=== PATIENT | female | born 1960 | race Caucasian/White ===

== ENCOUNTER 2017-12-30 07:00 | Day surgery (SDC) | payer BC, OTHER ==
[2017-12-29 16:19] LABS: HEMATOCRIT 41.9 % (36.0-48.0); HEMOGLOBIN 15.2 g/dL (12-16); MCHC 36.3 g/dL (31.0-37.0); MCV 88.2 fL (80.0-100.0); RBC 4.75 10x6/uL (4.00-5.40); RDW 12.5 % (11.5-14.5)
[~2017-12-30] VITALS: Ht 157.5 cm; Wt 108.0 kg
--- NOTE | ~2017-12-30 | OP ---
PATIENT NAME: RASHID MAYEN MEDICAL RECORD: [id number] :60 LOCATION:[facility] ADMISSION DATE: SURGEON: PHILLIP MATTA DO DATE OF OPERATION: 12/30/2017 PROCEDURE PERFORMED: Left knee arthroscopy with plica resection, partial medial meniscectomy, partial lateral meniscectomy and abrasion chondroplasty to medial femoral condyle. PREOPERATIVE DIAGNOSES: Left knee pain with medial meniscal tear. 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 Also, plica band syndrome. INDICATIONS: Ms. Mayen is a 57-year-old female who has had left knee pain for the last two weeks, she said it has gotten worse over the last few weeks and had not been able to walk, due to the popping, catching and locking. She had an MRI, which showed initially read as not having a meniscal tear, but there was some edema in her medial meniscus noted. I told her due to her symptoms she had a positive Aarti's and bounce home test as well as medial joint line tenderness. We would look at it and due to the severity of her symptoms she could not bear weight much. She was okay with that and was aware of the risks and benefits of the procedure including infection, bleeding, damage to nerves and vessels, need for further surgery and consented to the procedure. SURGEON: Phillip Matta DO DESCRIPTION OF PROCEDURE: The patient was taken to the operative suite, laid in supine position, given general anesthetic and 3 grams Ancef preoperatively. The left lower extremity was prepped and draped in sterile fashion. Timeout was performed, everyone was in agreement with the correct side, site, patient and procedure. Procedure then began with the knee flexed and a lateral portal was established with 11-blade scalpel. The scope was then entered into the knee. The water was turned on and there was quite a bit of inflammation and even blood in the knee joint itself. A large plica band was noticed over the medial femoral condyle, rubbing, had completely removed the cartilage of the trochlea and more than 50% of that on the medial facet of the patella as well as the anterior portion of the medial femoral condyle. Noting this, we continued with the knee scope, inspecting the lateral gutter, again had some blood in the medial gutter as well and then the knee was brought from extension to flexion and the medial joint was entered. The medial portal was then established with first an 18-guage spinal needle then 11-blade scalpel. A probe was put into the knee. A large piece of cartilage was noted in the medial joint as well as a grade IV chondromalacia right along the central portion of the medial femoral condyle. Cartilage was full thickness, torn and falling off. The meniscus was probed and there was a tear on the posterior horn of it, close to the root. This was trimmed out with a biter and shaver. Then, the abrasion chondroplasty was performed. All the loose cartilage was taken off the medial femoral condyle with a shaver back to a stable position. The ACL was then inspected and seen to be taut. The knee was then [id number]-fl-fwcn'ed and the lateral compartment was inspected. There was fraying and tear seen of the more inner portion of the lateral meniscus on the anterior third. This was trimmed back with the shaver. That portion of the meniscectomy was done then. The knee was then brought into extension. The shaver was brought into the superior pouch and the plica was OPERATIVE REPORT [id number] RASHID MAYEN resected with a shaver. As the plica was resected, more of the removed cartilage was seen and it was quite extensive over the trochlea and the anterior portion of the medial femoral condyle. Then a burner was brought in and all bleeding was coagulated and the water was turned off. Suction was turned on and the excess fluid was removed out of the knee. All the loose bodies were removed prior to this as well from the cartilage pieces. The patient was then injected with 0.25% Marcaine with epinephrine at the sites of the portal sites and the portal sites were closed with 4-0 Monocryl in inverted interrupted fashion. Steri-Strips, Adaptic, 4 x 4's, ABD, Webril and Horacio wrap were then placed on these. AIDEE hose stocking was placed up to the knee. The patient was awakened and taken to recovery in stable condition. COMPLICATIONS: None. BLOOD LOSS: Minimal. TRANSINT:[id number] Voice Confirmation ID: [id number] DOCUMENT ID: [id number] PHILLIP MATTA DO at 1516 CC: [id number] DICTATION DATE: 12/30/17 1108 COMMISSARY MANAGER: 12/30/17 1145 [facility] [place] 12/30/17 [place] [id number] [place] [address]
[~2017-12-30 07:00] MED LIST: CYCLOBENZAPRINE10 MG PO; PRAVACHOL20 MG PO; ZOLOFT50 MG PO
[2017-12-30 07:39] VITALS: BP 184/105; Ht 157.5 cm; Wt 108.0 kg
[2017-12-30] MEDS ORDERED: MOBIC7.5 MG PO (11:01)
[2017-12-30] MEDS ORDERED: PERCOCET 5-3251 TAB PO (11:01)
== END 2017-12-30 12:45 | disposition home or self-care (01) ==
LOC: D.OPS 07:00 → D.PAN 08:50 → D.OPS 09:00 → D.PAN 09:00 → D.OPS 12:45 → D.PAN 13:00 → D.OPS 13:00
PROVIDERS: Anesthesiology
DX: S83.242A Other tear of medial meniscus, current injury, left knee, initial encounter (principal); S83.282A Other tear of lateral meniscus, current injury, left knee, initial encounter; M22.42 Chondromalacia patellae, left knee; M67.52 Plica syndrome, left knee; Z01.812 Encounter for preprocedural laboratory examination

== ENCOUNTER 2020-01-25 05:15 | Day surgery (SDC) | payer MEDICARE ==
[~2020-01-25] VITALS: Ht 157.5 cm; Wt 108.9 kg
[~2020-01-25 05:15] MED LIST changes: +LISINOPRIL10 MG PO; +MOBIC7.5 MG PO; +PERCOCET 5-3251 TAB PO; +PRAVASTATIN SOD10 MG; +TRAZODONE HCL100 MG PO
[2020-01-25 05:44] LABS: HEMATOCRIT 41.8 % (36.0-48.0); MCH 30.6 pg (26.0-34.0); MCHC 33.5 g/dL (31.0-37.0); MCV 91.3 fL (80.0-100.0); MEAN PLATELET VOLUME 9.9 fL (7.4-10.4); RBC 4.58 10x6/uL (4.00-5.40); WBC 6.1 10x3/uL (4.8-10.8)
[2020-01-25 06:25] VITALS: BP 140/88; Ht 157.5 cm; Wt 108.9 kg
--- NOTE | 2020-01-25 11:51 | NUR ---
0945 IV D/C'D WITH CANNULA INTACT, PRESSURE HELD AND DRSG PLACED. DISCHARGE INSTRUCTIONS GIVEN TO PT AND SHE VERBALIZED AN UNDERSTANDING. DISCHARGED HOME IN STABLE CONDITION AND WITHOUT C/O
--- NOTE | 2020-01-25 11:58 | OP ---
PATIENT NAME: RASHID MAYEN MEDICAL RECORD: [id number] :60 LOCATION:[facility] ADMISSION DATE: SURGEON: PHILLIP MATTA DO DATE OF OPERATION: 01/25/2020 PROCEDURE PERFORMED: Right endoscopic carpal tunnel release. PREOPERATIVE DIAGNOSIS: Right carpal tunnel syndrome. POSTOPERATIVE DIAGNOSIS: Right carpal tunnel syndrome. INDICATIONS: Ms. Mayen is a 59-year-old female who is well known to me who had a nerve conduction study, which showed right carpal tunnel syndrome. She has been dealing with this for quite some time and had not been going to sleep. She is tired of dealing with it and wanted something done surgically. I informed her of the risks including infection, bleeding, damage to nerves and vessels, specifically the median nerve, continued pain and loss of research nutritionist strength and she signed the consent. SURGEON: Phillip Matta DO DESCRIPTION OF PROCEDURE: The patient was taken to the operative suite, laid in supine position, given general anesthetic and LMA was placed. She was given 2 grams of Ancef preoperatively. The right upper extremity was then prepped and draped in sterile fashion. A timeout was performed and everyone was in agreement with correct the correct site, side, patient, procedure. I then began by using an Esmarch to exsanguinate the right upper extremity, the tourniquet was inflated to 250 mmHg, it was up for 6 minutes. I then made an incision over the volar wrist crease and made blunt dissection with Esthelanelldaisy down to the median nerve. I then released the forearm fascia from distal to proximal on top of the median nerve and then entered the carpal tunnel with the dilators and then the sheath, brought in the camera and the rasp and a probe to clean up the transverse carpal ligament. I then brought in blade and raised it up and transected the transverse carpal ligament, opening up the carpal tunnel and fat then herniated down into the carpal tunnel. I then removed all the equipment and used the long end of the Ragnell and scissors and spread to ensure there was no more fibers of the transcarpal ligament connecting and there was none. Tourniquet was then let down. I then injected the site with 0.25% Marcaine, 9 mL with epinephrine around the site and closed. I then closed it with 5-0 Monocryl in inverted interrupted fashion and then placed Steri-Strips, Adaptic, 4 x 4's, cast padding and Coban lightly wrapped on the wrist. She was then awakened and taken to recovery in stable condition. BLOOD LOSS: Minimal. COMPLICATIONS: None. TRANSINT:[id number] Voice Confirmation ID: [id number] DOCUMENT ID: [id number] OPERATIVE REPORT [id number] RASHID MAYEN,PHILLIP Sanchez DO at 1158 CC: [id number] DICTATION DATE: 01/25/20913 IMAGING MANAGER: 01/25/20 1118 [facility] [address] [place] [address]
== END 2020-01-25 09:50 | disposition home or self-care (01) ==
LOC: D.OPS 05:15
PROVIDERS: Anesthesiology; ATTEND Orthopaedic Surgery
DX: G56.03 Carpal tunnel syndrome, bilateral upper limbs (principal); I10 Essential (primary) hypertension; G56.22 Lesion of ulnar nerve, left upper limb